=== PATIENT | female | born 1945 | race Caucasian/White ===

== ENCOUNTER 2018-02-08 07:47 | Emergency (ER) | payer OTHER, MEDICARE ==
[~2018-02-08] VITALS: Ht 162.6 cm; Wt 84.8 kg
--- NOTE | ~2018-02-08 | EKG ---
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1945 Requested By: Michelle Ferreira Order Number: [id number] MD: Edouard Mckenzie Measurements Intervals Mclain Rate: 70 P: 55 IL: 167 QRS: 21 QRSD: 91 T: QT: 424 QTc: 458 Interpretive Statements Sinus rhythm Repol abnrm suggests ischemia, anterolateral Compared to ECG 01/25/2016 08:26:27 Early repolarization now present Possible ischemia still present Electronically Signed On 02-08-2018 20:41:20 MOLD COOLER by Edouard Mckenzie [email or web address] <ELECTRONICALLY SIGNED> By: Edouard Mckenzie MD 02/08/182040 4 4 Edouard Mckenzie MD /KENDRICK
[~2018-02-08 07:47] MED LIST: ACETAMINOPHEN325 M1 PO; AMLODIPINE BESY10 MG PO; ARTIFICIAL TEA1 EACH OPHTHALMIC; ASPIRIN EC81 M1 PO; CARVEDILOL12.5 MG PO; CARVEDILOL25 MG PO; CEPHALEXIN 500500 M1 PO; CLONIDINE0.1 PO; COUMADIN 5 MG TA5 M1 PO; COZAAR 25 MG TA25 M1 PO; CYCLOPENTOLA1 %/2 M1 OPHTHALMIC; FAMOTIDINE 40 M40 M1 PO; FERREX-150 PLU150 MG PO; LISINOPRIL10 MG PO; LOPRESSOR25 PO; LOTEMAX5 GM OPHTHALMIC; NORCO 5-325 TA1 EACH PO; PERCOCET 5-3251 EACH PO; PHISOHEX148 ML; SENOKOT-S1 TA1; SIMVASTATIN20 MG PO; SYNTHROID25 MCG PO; TRIMETHOPRIM /P10 M1 OPHTHALMIC; UNICOMPLEX M TA1 TA1 PO
[2018-02-08 08:14] LABS: ABSOLUTE NEUTROPHILS 4.5 thou/uL (1.4-8.2); BASOPHILS 1.3 % (0.0-2.0); EOSINOPHILS 6.2 % (0.0-3.0); HEMATOCRIT 47.9 % (37.0-47.0); HEMOGLOBIN 15.9 gm/dL (12.0-15.0); LYMPHOCYTES 26.1 % (24.0-44.0); MCH 27.8 pg (26.0-34.0); MCHC 33.1 g/dL (28.0-37.0); MCV 83.9 fL (80.0-100.0); MONOCYTES 5.6 % (1.0-8.0); PLATELET COUNT 178 thou/uL (150-400); POLYS 60.8 % (36.0-66.0); RBC 5.71 mil/uL (4.20-5.00); RDW 13.8 % (10.5-14.5); WBC 7.4 thou/uL (4.0-11.0)
[2018-02-08] MEDS ORDERED: LASIX 20 MG TAB20 MG PO (08:21)
[2018-02-08 08:23] LABS: ANION GAP 9 mmol/L (7-16); BUN 11 mg/dL (7-18); CALCIUM 9.5 mg/dL (8.5-10.1); CHLORIDE 105 mmol/L (98-107); CO2 27 mmol/L (21-32); GLUCOSE 117 mg/dL (74-106); POTASSIUM 3.9 mmol/L (3.5-5.1); SODIUM 141 mmol/L (136-145)
[2018-02-08 08:31] LABS: TROPONIN-I <0.06 ng/mL (<0.06)
[2018-02-08 09:15] LABS: URINE BILIRUBIN NEGATIVE (Negative); URINE BLOOD NEGATIVE (Negative); URINE CLARITY CLEAR; URINE COLOR YELLOW; URINE GLUCOSE-RANDOM* NEGATIVE (Negative); URINE KETONES NEGATIVE (Negative); URINE LEUKOCYTES NEGATIVE (Negative); URINE NITRITE NEGATIVE (Negative); URINE PROTEIN (DIPSTICK) NEGATIVE (Negative); URINE UROBILINOGEN 0.2 E.U./dl (0.2-1.0)
[2018-02-08 10:25] VITALS: BP 134/66
== END 2018-02-08 10:27 | disposition home or self-care (01) ==
LOC: ER 07:47
PROVIDERS: Student in an Organized Health Care Education/Training Program
DX: I10 Essential (primary) hypertension (principal); K21.9 Gastro-esophageal reflux disease without esophagitis; E03.9 Hypothyroidism, unspecified; E78.00 Pure hypercholesterolemia, unspecified; Z95.5 Presence of coronary angioplasty implant and graft; Z90.49 Acquired absence of other specified parts of digestive tract

== ENCOUNTER → 2019-03-18 | Outpatient (CLI) | payer OTHER, MEDICARE ==
[~2019-03-18] MED LIST changes: +LASIX 20 MG TAB20 MG PO
--- NOTE | 2019-03-18 14:29 | 2DMMODE ---
[facility] [employer] [place] [address] 2 D/M-MODE ECHOCARDIOGRAM Name: JAYNE NOGUEIRA Room #: [facility]#: [id number] Admission: Attend Phys: Ranjit Hannah, Discharge: Date of : 41 Report #: [id number] THIS REPORT FOR: //name// APPROVED REPORT Study performed: 03/18/2019 13:46:47 EXAM: Comprehensive 2D, Doppler, and color-flow Echocardiogram Patient Location: Echo lab Status: routine BSA: 1.92 HR: 67 bpm BP: 138/60 mmHg Rhythm: NSR Other Information Study Quality: Adequate Indications Hypertension/HDD AVR 2D Dimensions RVDd: 32.53 mm IVSd: 9.33 (7-11mm) LVOT Diam: 18.83 (18-24mm) LVDd: 44.27 mm PWd: 10.51 (7-11mm) Ascending Ao: 28.33 (22-36mm) LVDs: 27.70 (25-40mm) Aortic Root: 25.49 mm IVC: 12.00 mm Volumes Left Atrial Volume (Systole) Single Plane 4CH: 58.65 mL Single Plane 2CH: 62.45 mL LA ESV Index: 34.00 mL/m2 Aortic Valve AoV Peak Isaac.: 2.44 m/s AO Peak Gr.: 23.79 mmHg LVOT Max P.40 mmHg AO Mean Gr.: 12.14 mmHg LVOT Mean P.99 mmHg AO V2 Mean: 1.61 m/s LVOT Max V: 1.26 m/s AO V2 VTI: 56.65 cm LVOT Mean V: 0.77 m/s AZALIA (VTI): 1.45 cm2 LVOT V1 VTI: 29.45 cm AZALIA Vmax: 1.44 cm2 SV (LVOT): 81.[address] [facility] [employer] [address] 2 D/M-MODE ECHOCARDIOGRAM Name: JAYNE NOGUEIRA Room #: [facility]#: [id number] Admission: Attend Phys: Ranjit Hannah, Discharge: Date of : 41 Report #: [id number] Mitral Valve E/A Ratio: 1.1 MV Decel. Time: 211.36 ms MV E Max Siaac.: 0.70 m/s MV A Isaac.: 0.66 m/s MV PHT: 61.29 ms IVRT: 100.35 ms Pulmonary Valve PV Peak Isaac.: 0.77 m/s PV Peak Gr.: 2.40 mmHg Pulmonary Vein P Vein S: 0.63 m/s P Vein A: 0.18 m/s P Vein D: 0.51 m/s P Vein A Dur.: 115.3 msec P Vein S/D Ratio: 1.24 Tricuspid Valve TR Peak Isaac.: 2.78 m/s RAP Estimate: 5.00 mmHg TR Peak Gr.: 30.82 mmHg PA Pressure: 36.00 mmHg Left Ventricle The left ventricle is normal size. There is normal left ventricular wall thickness. The left ventricular systolic function is normal. The left ventricular ejection fraction is within the normal range. LVEF is 55-60%. Moderate diastolic dysfunction is present (pseudonormal filling). Right Ventricle The right ventricle is normal size. The right ventricular systolic function is normal. Atria The left atrium size is normal. Right atrium is at the upper limits of normal. Aortic Valve Bioprosthetic aortic valve is present with a max pressure gradient of 24 mmHg and a mean pressure gradient of 12 mmHg. No aortic regurgitation is present. Mitral Valve The mitral valve is normal in structure. Mild mitral regurgitation. No evidence of mitral valve stenosis. [facility] [address] [place] [address] 2 D/M-MODE ECHOCARDIOGRAM Name: JAYNE NOGUEIRA Room #: [facility]#: [id number] Admission: Attend Phys: Ranjit Hannah, Discharge: Date of : 41 Report #: [id number] Tricuspid Valve The tricuspid valve is normal in structure. Mild tricuspid regurgitation. PAP is estimated at 36 mmHg. Pulmonic Valve The pulmonary valve is normal in structure. Trace pulmonic regurgitation. Great Vessels The aortic root is normal in size. IVC is normal in size and collapses >50% with inspiration. Pericardium There is no pericardial effusion. <Conclusion> The left ventricle is normal size. There is normal left ventricular wall thickness. The left ventricular systolic function is normal. Moderate diastolic dysfunction is present (pseudonormal filling). The right ventricle is normal size. The left atrium size is normal. Bioprosthetic aortic valve is present with a max pressure gradient of 24 mmHg and a mean pressure gradient of 12 mmHg. Mild mitral regurgitation. Mild tricuspid regurgitation. PAP is estimated at 36 mmHg. <ELECTRONICALLY SIGNED> By: Jacky Negro MD 03/18/19 1428 1428 1428 Jacky Negro MD /INF
== END ==
LOC: CV 11:29
DX: I08.1 Rheumatic disorders of both mitral and tricuspid valves (principal); I11.0 Hypertensive heart disease with heart failure; I50.32 Chronic diastolic (congestive) heart failure

== ENCOUNTER → 2019-04-22 | Outpatient (CLI) | payer OTHER, MEDICARE | LOC: SJCVCIMAG 09:25 | DX: R07.9 Chest pain, unspecified (principal); R55 Syncope and collapse; R42 Dizziness and giddiness; I11.0 Hypertensive heart disease with heart failure; I50.9 Heart failure, unspecified; I35.0 Nonrheumatic aortic (valve) stenosis; E78.5 Hyperlipidemia, unspecified; Z79.82 Long term (current) use of aspirin; Z79.899 Other long term (current) drug therapy; Z88.8 Allergy status to other drugs, medicaments and biological substances ==

== ENCOUNTER → 2019-11-05 | Outpatient (CLI) | payer OTHER, MEDICARE | LOC: SJCVC 10:54 | PROVIDERS: ATTEND Internal Medicine Cardiovascular Disease | DX: R94.31 Abnormal electrocardiogram [ECG] [EKG] (principal); I11.0 Hypertensive heart disease with heart failure; I50.30 Unspecified diastolic (congestive) heart failure; R55 Syncope and collapse; I35.0 Nonrheumatic aortic (valve) stenosis; E78.5 Hyperlipidemia, unspecified; Z82.49 Family history of ischemic heart disease and other diseases of the circulatory system; Z79.82 Long term (current) use of aspirin; Z79.899 Other long term (current) drug therapy ==

== ENCOUNTER → 2020-01-03 | Outpatient (CLI) | payer OTHER, MEDICARE | LOC: SJCVC 10:09 | PROVIDERS: ATTEND Internal Medicine Cardiovascular Disease | DX: R94.31 Abnormal electrocardiogram [ECG] [EKG] (principal); I35.0 Nonrheumatic aortic (valve) stenosis; R55 Syncope and collapse; I10 Essential (primary) hypertension; Z95.2 Presence of prosthetic heart valve; Z79.899 Other long term (current) drug therapy ==

== ENCOUNTER → 2020-01-31 | Outpatient (CLI) | payer OTHER, MEDICARE | LOC: SJCVC 09:56 | PROVIDERS: ATTEND Internal Medicine Cardiovascular Disease | DX: R94.31 Abnormal electrocardiogram [ECG] [EKG] (principal); R06.00 Dyspnea, unspecified; I35.0 Nonrheumatic aortic (valve) stenosis; R55 Syncope and collapse; I10 Essential (primary) hypertension; I47.1 Supraventricular tachycardia; R00.2 Palpitations; Z95.2 Presence of prosthetic heart valve ==

== ENCOUNTER → 2020-07-05 | Outpatient (CLI) | payer OTHER, MEDICARE | LOC: SJCVC 13:07 | PROVIDERS: ATTEND Internal Medicine Cardiovascular Disease | DX: R94.31 Abnormal electrocardiogram [ECG] [EKG] (principal); I35.0 Nonrheumatic aortic (valve) stenosis; R06.00 Dyspnea, unspecified; R60.9 Edema, unspecified; I11.0 Hypertensive heart disease with heart failure; I50.30 Unspecified diastolic (congestive) heart failure; E78.5 Hyperlipidemia, unspecified; Z95.2 Presence of prosthetic heart valve; Z98.890 Other specified postprocedural states; Z90.49 Acquired absence of other specified parts of digestive tract; Z88.8 Allergy status to other drugs, medicaments and biological substances; Z79.82 Long term (current) use of aspirin; Z79.899 Other long term (current) drug therapy; Z82.49 Family history of ischemic heart disease and other diseases of the circulatory system ==

== ENCOUNTER → 2021-01-09 | Outpatient (CLI) | payer OTHER, MEDICARE | LOC: SJCVCIMAG 12:43 | PROVIDERS: ATTEND Internal Medicine Cardiovascular Disease | DX: R55 Syncope and collapse (principal); I10 Essential (primary) hypertension; I35.0 Nonrheumatic aortic (valve) stenosis; R06.00 Dyspnea, unspecified; R60.9 Edema, unspecified; E78.5 Hyperlipidemia, unspecified; Z88.8 Allergy status to other drugs, medicaments and biological substances; Z79.82 Long term (current) use of aspirin; Z79.899 Other long term (current) drug therapy ==

== ENCOUNTER → 2021-01-30 | Outpatient (CLI) | payer OTHER, MEDICARE | END | disposition home or self-care (01) | LOC: SJCVC 13:18 | PROVIDERS: ATTEND Internal Medicine Cardiovascular Disease | DX: R55 Syncope and collapse (principal); I10 Essential (primary) hypertension; I35.0 Nonrheumatic aortic (valve) stenosis; R60.0 Localized edema; Z79.82 Long term (current) use of aspirin; Z88.8 Allergy status to other drugs, medicaments and biological substances; Z79.899 Other long term (current) drug therapy ==